=== PATIENT | female | born 1950 | race Caucasian/White ===

== ENCOUNTER 2016-03-15 13:32 | Emergency (ER) | payer MEDICARE ==
[2016-03-15] MEDS ORDERED: ONDANSETRON 4 MG ODT TAB ONE (14:22)
[2016-03-15] MEDS ORDERED: MORPHINE SULFATE 2 MG/ML SYRINGE ONE (14:22)
[2016-03-15] MEDS ORDERED: MORPHINE SULFATE 4 MG/ML SYRINGE ONE (14:22)
--- NOTE | 2016-03-15 14:25 | RAD ---
EXAMINATION :TWO VIEW HUMERUS RIGHT HISTORY: Fall injury. Right humerus and shoulder pain. COMPARISONS: None FINDINGS: 2 views of the Right humerus reveals: There is a markedly comminuted impacted fracture of the proximal right humerus. There is medial displacement of the distal fracture fragments. The distal humerus is intact. The adjacent scapula and clavicle are unremarkable. The glenohumeral joint space is grossly maintained. The elbow is grossly unremarkable. IMPRESSION: Markedly comminuted impacted fracture of the proximal right humerus.
== END 2016-03-15 15:10 | disposition home or self-care (01) ==
LOC: ED 13:32
DX: S42.91XA Fracture of right shoulder girdle, part unspecified, initial encounter for closed fracture (principal); G35 Multiple sclerosis; F17.210 Nicotine dependence, cigarettes, uncomplicated; Z85.3 Personal history of malignant neoplasm of breast; Z79.899 Other long term (current) drug therapy; W10.9XXA Fall (on) (from) unspecified stairs and steps, initial encounter
CPT/HCPCS: 73060; 99283; 96372; 99284; J2270 ×2; A9270

== ENCOUNTER 2016-03-29 15:29 | Emergency (ER) | payer MEDICARE ==
--- NOTE | 2016-03-29 18:26 | RAD ---
ADDENDUM #1 Dr. Quinones called and stated on his review, he sees a fracture right where the patient's hurting, within the posterior right 10th rib. Lucency is seen in this location on both the PA view of the chest and image labeled "ribs upper." This is 8 cm from the BB. Findings are compatible with a subacute nondisplaced fracture. This is discussed with Dr. Quinones at 1840 hours 03/29/2016. ADDENDUM #2 Disregard the addendum, it was erroneously placed in this record. ORIGINAL REPORT Exam: 4 view left knee COMPARISON: None INDICATION: Fall on ice on 03/15/2016, persistent left knee pain. FINDINGS: AP, lateral and bilateral AP oblique views of the left knee were obtained. Diffuse bony osteopenia. There is no joint effusion. Alignment is maintained. No fracture or periosteal reaction is identified. Joint spaces are preserved. IMPRESSION: Osteopenia. Otherwise negative 4 view left knee.
== END 2016-03-29 18:56 | disposition home or self-care (01) ==
LOC: ED 15:29
DX: S83.412D Sprain of medial collateral ligament of left knee, subsequent encounter (principal); W19.XXXD Unspecified fall, subsequent encounter

== ENCOUNTER 2016-04-10 10:01 | Inpatient (IN) | payer MEDICARE, OTHER ==
--- NOTE | 2016-04-09 09:08 | HP ---
DATE OF CLINIC: 04/08/2016 NUVIA WEEKS : 1950 PLANNED PROCEDURE: Right Reverse Shoulder Arthroplasty vs. Hemiarthroplasty and Biceps Tendoesis for a 4 part Proximal Humerus Fracture DATE OF SURGERY: April 10, 2016 SURGEON: Anuj Patterson M.D. HISTORY OF PRESENT ILLNESS Nuvia Weeks is a 65 year old female. * Medication list reviewed with patient allergy list reviewed with patient. * Tried NSAIDS * Has not tried Physical Therapy * Has not tried Injections The patient is a 65 yr old female with a PMH significant for multiple sclerosis, stroke, breast cancer s/p double mastectomies and reconstruction, who smokes 1/2 ppd of cigarettes, who sustained a fall 3 weeks ago resulting in a 4 part proximal humerus frx. The patient had an EMG/NCV study yesterday by Dr. Flores who I spoke to on the phone who says that he does have some muscle recruitment with the axillary nerve but there may be some evidence of neuropraxia in the right shoulder. At the last exam, I had some concern about her persistent weakness and different sensation on the lateral aspect of her right shoulder. The patient is here today with her sister to consider her options, both non-op and surgical treatment. She is leaning toward surgery. At the last appointment I told her that I do not think an ORIF would be successful and would recommend a right shoulder arthroplasty, a reverse shoulder replacement or hemiarthroplasty and she is here to discuss the pros and cons of this procedure. The patient rates her right shoulder pain as 6/10 and continues to wear the shoulder immobilizer. PMH: The patient has had a prior surgery in 1991 of the right shoulder. She was seen by my partner, Dr. Valles, recently who then ordered a CT scan to better evaluate her fracture and I was asked to see the patient in follow-up for possible treatment options. She is here today with her sister. The patient lives in [place], [place]. Prior to this fall she did not have any problems with his shoulder. The patient has not seen her PCP recently, her tree sapper or her neurologist. The patient states she is in a fair amount of pain and cannot clearly state to me if her sensation on the right shoulder in the axillary nerve distribution feels the same or different than her left shoulder. CURRENT MEDICATION * Avonex 30 MCG Kit 1 once a day 0 days, 0 refills * Citalopram 30 MG Tablet 0 days, 0 refills * [facility] Melatonin 10 MG Capsule 0 days, 0 refills * OxyCODONE HCl 5 MG Tablet as directed: one tab by mouth every 4-6 hours as needed for pain, 14 days, 0 refills * Oxycodone-Acetaminophen 5-325 MG Tablet 0 days, 0 refills * Percocet 5-325 MG Tablet Take 1-2 tablets by mouth every 4-6 hours as needed for pain, 10 days, 0 refills PAST MEDICAL/SURGICAL HISTORY Reported: Medical: Multiple sclerosis, cancer breast, Thyroid Disorder, and Anemia. Surgical / Procedural: Prior surgery Left thumb 2006, Caesarean Section x2 1988/1986, Tonsilectomy, and Breast surgery Double mastectomy & reconstruction 2014?. Allergy to colds as child MS C.S times two exploratory lap CTS bilateral pin left wrist after fracture. SOCIAL HISTORY Behavioral: Caffeine use. No tobacco use. Current smoker. Not chewing tobacco. Smoking status: Current everyday smoker. Alcohol: Alcohol use. Drug Use: Not using drugs. Work: Occupation Teacher. ALLERGIES * Bees FAMILY HISTORY Mother ill Cancer, Thyroid disease Children living yes Mother allergic to tape Family medical history Mother- Depression Father- Cancer REVIEW OF SYSTEMS Systemic: No fever and no recent weight change. Cardiovascular: No chest pain or discomfort and no palpitations. Pulmonary: No dyspnea, no cough, and no wheezing. Gastrointestinal: No nausea, no vomiting, no abdominal pain, and no diarrhea. Hematologic: No easy bleeding and no tendency for easy bleeding (no blood clots). Neurological: Motor disturbances (pt describes some balance issues) and sensory disturbances (decreased right arm sensation by axillary nerve, symptoms of MS). Skin: No skin lesions and no rash. PHYSICAL FINDINGS * Vitals taken 04/08/2016 02:56 pm BP-Sitting R 74/40 mmHg 100 - 120/56 - 80 BP Cuff Size Regular Pulse Rate-Sitting 65 bpm 50 - 100 Pulse Rhythm Regular Temp-Oral 98.1 F 96 - 101 Height 66 in 59 - 68 Weight 150 lbs 96 - 178 Body Mass Index 24.2 kg/m2 Body Surface Area 1.77 m2 Pain Level 7 General Appearance: * Well developed. * In no acute distress. Eyes: General/bilateral: Extraocular Movements: * Normal. Lungs: * Clear to auscultation. * No wheezing was heard. * No rales/crackles were heard. Cardiovascular: Heart Rate and Rhythm: * Heart rate was normal. * Heart rhythm regular. Abdomen: Palpation: * Abdominal non-tender. Neurological: * Oriented to time, place, and person. Motor: * Dominant Hand = Right Hand. PHYSICAL FINDINGS RIGHT EXTREMITY Elbow AROM Flexion: 10 to 130 degrees Shoulder General Appearance: The patient has no right shoulder bruising and minimal swelling. She has limited right shoulder motion due to pain AROM Forward Flexion: 40 degrees ABD: 30 degrees PROM Forward Flexion: 40 degrees ABD: 30 degrees ER (0): 0 degrees Strength (0-5/5) Deltoid: 3/5 Triceps: 4/5 Biceps: 4/5 EPL,Finger Flexors,Finger Extensors,Wrist Flexors, Wrist Extensors,Intrinsics,Automobile Rental Clerk: 5/5 Rotator cuff Supraspinatus: could not assess Infraspinatus: could not assess Subscapularis: could not assess Biceps Exam Bicipital Groove Tenderness: Tender to touch Muscle Deformity (Renan): Not present Other Atrophy/Asymmetry: Normal Scapular Winging: Negative Medial Scapular Tenderness: Negative Trapezius Pain: POSITIVE Vascular Exam Radial Pulse: 2+ Sensation Gross sensation to light touch in the distribution of Median, Ulnar and Radial nerves present but patient has decreased axillary nerve sensation on the right compared to the left PHYSICAL FINDINGS LEFT EXTREMITY Shoulder General Appearance: no scars, no bruising, no swelling, no gross deformity AROM Forward Flexion: 160 degrees ABD: 110 degrees IR: Highest posterior anatomy reached with thumb: L3 PROM ER (0): 50 degrees Strength (0-5/5) Deltoid: 5/5 Triceps: 5/5 Biceps: 5/5 EPL,Finger Flexors,Finger Extensors,Wrist Flexors, Wrist Extensors,Intrinsics,Automobile Rental Clerk: 5/5 Rotator cuff Supraspinatus: 5/5 (negative empty can test) Infraspinatus: 5/5 (no pain with resisted external rotation) Subscapularis: 5/5 (negative belly press test) Rotator Cuff Exam Superior Escape: Negative Biceps Exam Bicipital Groove Tenderness: Negative Muscle Deformity (Renan): Not present Other Atrophy/Asymmetry: Normal Medial Scapular Tenderness: Negative Trapezius Pain: Negative Vascular Exam Radial Pulse: 2+ Sensation Gross sensation to light touch in the distribution of Median, Ulnar, Axillary, and Radial nerves present PREVIOUS TESTS * Test: CBC NO DIFF Report Date: 04/01/2016 WBC 7.8 10*3/mL MCV 100.5 fL High RBC 4.07 10*6/uL Low MCH 33.4 pg High MCHC 33.3 g/dL RDW 13.2 % PLATELET COUNT 446 10*3/mL High HCT 40.9 % HGB 13.6 g/L * Test: URINALYSIS WITH MICROSCOPIC Report Date: 04/01/2016 EPITHELIAL CELL 1-3 WBC 20-30 GLUCOSE NEGATIVE BACTERIA 2+ PH,URINE 6.0 SPEC. GRAVITY 1.025 KETONE NEGATIVE NITRITE NEGATIVE RBC 0-2 BLOOD NEGATIVE BILIRUBIN NEGATIVE APPEARANCE CLEAR PROTEIN TRACE COLOR YELLOW LEUK ESTERASE 2+ UROBILINOGEN NORMAL * Test: PROTHROMBIN TIME Report Date: 04/01/2016 PROTIME 9.9 s INR 0.94 * Test: PARTIAL THROMBOPLASTIN TIME Report Date: 04/01/2016 APTT 22.1 s Low * Test: BASIC METABOLIC PROFILE Report Date: 04/01/2016 BUN 20 mg/dL BUN/CREAT RATIO 33 High CALCIUM 9.4 mg/dL GLUCOSE 92 mg/dL CREATININE 0.6 mg/dL SODIUM 140 meq/L POTASSIUM 4.2 meq/L CHLORIDE 103 meq/L CARBON DIOXIDE 30 meq/L ANION GAP 11 meq/L GFR 101 High * Test: URINE CULTURE Report Date: 04/02/2016 URINE CULTURE >100,000 CFU/ML MIXED KAYLEN, 3 OR MORE COLONY TYPES, * Test: MRSA SCREEN Report Date: 04/02/2016 MRSA SCREEN NEGATIVE * Test: MSSA SCREEN Report Date: 04/02/2016 MSSA SCREEN NEGATIVE FOR STAPHYLOCOCCUS AUREUS IMAGING 04.01.2016--CXR: shows degenerative scoliosis of the thoracic spine. The patient has signs of obstructive pulmonary findings but no acute infiltrates or other problems are appreciated. 03.29.2016--Knee x-rays show no signs of arthritis or signs of a fracture in the left knee. Flexion views were not performed. Osteopenia is seen on the x-rays. 03.15.2016--AP and lateral of the right humerus show a comminuted right proximal humerus frx. This appears to be a displaced 4 part fracture. 03.19.2016--4 views of the right shoulder---shows a 4 part comminuted, proximal humerus fracture. The articular surface is facing the undersurface of the acromion. 03.19.2016--CT of the right shoulder--pt has a normal appearing glenoid with a 4 part proximal humerus fracture. The patient's tuberosities are displaced. There is hemearthrosis that is present ASSESSMENT Anuj Patterson MD made the following assessments * Closed four-part fracture of the greater tuberosity of the right humerus --2 weeks ago * Sprained medial collateral ligament of the left knee PLAN Anuj Patterson MD ordered the following therapy * Shoulder arthroplasty -right RSA vs. hemiarthroplasty THERAPY * Patient not eligible for fall risk assessment. SURGICAL CONSENT We have discussed surgical options including right shoulder reverse shoulder arthroplasty vs. hemiarthroplasty and biceps tenodesis for a 4 part proximal humerus fracture vs nonoperative management. I spoke to the patient about her injury. I told her that based on her fracture pattern I do not think an ORIF would be successful and would recommend an arthroplasty I told her we would evaluate at the time of surgery whether I would perform a RSA or William depending on the status of her rotator cuff. Based on what I see on the CT scan I told her a RSA is more likely. I told her today about the limitation of an RSA especially that she is at higher risk of instability due to her axillary nerve decreased function. I spoke to Dr. Flores and he expects this to recover so I think it is worthwhile moving ahead with this surgery. We then spoke about some of the technical aspects of the surgery. I showed her my patient education powerpoint presentation about the procedure and attempted to answer her questions. We spoke about her increased risk of infection, stroke, instability, infection, limited longevity of an RSA, and anesthesia risks. After a lengthy description, the patient signed the consent form. The patient has shoulder pain, decreased ROM and strength, not responding to injections, therapy, and non-operative measures. The patient had a x-ray and MRI documenting her rotator cuff problem. Because of those findings and failure of conservative non-operative treatment, after a lengthy discussion of the risks and benefits she/he elected to proceed with the above mentioned surgery. The patient understood that the risks of infection, blood loss, neurovascular injury, anesthetic risk, risk of instability, stiffness and post-operative pain. I explained that a reverse shoulder replacement refers to the resurfacing of the glenoid (part of the scapula) placing a metal ball or glenosphere with screws on this side of the joint, and cementing a metal stem used to fix it on the inside of the arm bone (humerus) with a plastic socket fixed in the humeral shaft. This procedure is the standard approach tot he management of arthritis of the shoulder joint in a patient's shoulder without a functional rotator cuff tendon. Because it resurfaces both the ball and the socket sides of the joint, it provides the most assured approach to restoring comfort and function to the shoulder. We can perform this shoulder surgery by operating through the delto-pectoral interval through an incision in the anterior aspect of the shoulder. Commonly, we performed a tenodesis of the long head of the biceps and a release (and repair) of the subscapularis tendon from the humerus. The long head of the biceps is sutured to the pectoral major tendon, and the subscapularis tendon is repaired back to the bone at the conclusion of the surgery. After a release of the subscapularis, the capsule, which is usually tight and contracted, limiting motion of the shoulder, is released. The arthritic part of the ball is removed with care to preserve the rotator cuff. The bone spurs are removed from around the humerus to avoid unwanted contact with the scapula. We then shape the bone of the socket area (glenoid) to receive the glenosphere ball. This is fixed in place with screws while the humeral socket is held in place with a small amount of bone cement (polymethylmethacrylate). This goes inside the humeral bone. The subscapularis is then repaired to the humerus using sutures. The [id number] of the shoulder is then evaluated and stability is then examined. The incision is then washed and closed. Pendulum exercises will be taught to the patient the day after surgery. Patients are usually discharged from the hospital on the second day after surgery, as long as they are comfortable on oral pain medication have met our goals for their [id number], and are able to walk with good balance and can care for their daily needs. In the past, there has been a major concern about wear of the glenoid socket component or about its loosening. While these concerns remain to a degree, it appears that our current methods of socket preparation and current prosthesis designs have substantially reduced these risks. Shoulder replacement surgery usually results in a substantial improvement in the comfort and function of an arthritic shoulder, but the results cannot be expected to match the condition of a normal joint. The patient was counseled in detail regarding the diagnosis, treatment options available, prognosis of each treatment option and the potential risks and complications. The risks of surgery include, but are not limited to, anesthetic , neurovascular complications, pulmonary embolism, deep vein thrombosis, wound dehiscence, failure of any or all of the discussed procedures, infection of the joint or surrounding soft tissue, need for revision surgery, chronic pain, limitations in activities of daily living, inability to return to work, and loss of normal range of motion or functional use of the extremity. There is the possibility of failure over time that may require additional operative or non-operative treatment. The patient acknowledged that there are a number of perioperative risks not mentioned here and would still like to proceed. The patient is aware of and understands these risks, and wishes to proceed with the proposed surgical procedure and other procedures as indicated at the time of surgery. The patient has seen her PCP for a preoperative medical risk assessment. The preoperative instructions were reviewed with the patient and all questions were answered. CARE TEAM Abelardo Levy MD Psychiatry & Neurology - Neurology BLP/sg
[2016-04-10] MEDS ORDERED: CEFAZOLIN SODIUM 2 GRAM PREMIX 100 ML IV PRN (12:00)
[2016-04-10] MEDS ORDERED: IV START KIT ONE (12:29)
[2016-04-10] MEDS ORDERED: LACTATED RINGERS 1,000 ML ONE ×2 (12:29→16:13)
[2016-04-10] MEDS ORDERED: FENTANYL 5 ML ONE (12:42)
[2016-04-10] MEDS ORDERED: MIDAZOLAM HCL 5 MG/5 ML VIAL ONE (12:42)
[2016-04-10] MEDS ORDERED: ROPIVACAINE 0.5% 30 ML VIAL ONE (12:46)
[2016-04-10] MEDS ORDERED: SODIUM CHLORIDE 0.9% FLUSH 10 ML ONE (12:46)
[2016-04-10] MEDS ORDERED: NERVE BLOCK PROCEDURAL TRAY 1 EACH ONE (12:46)
[2016-04-10] MEDS ORDERED: NICOTINE 14 MG PATCH 1 EACH TD SCH (14:10)
[2016-04-10] MEDS ORDERED: METOCLOPRAMIDE HCL 5 MG/ML 2ML VIAL ONE (14:13)
[2016-04-10] MEDS ORDERED: PROPOFOL 60 ML IV ONE (14:13)
[2016-04-10] MEDS ORDERED: ROCURONIUM BROMIDE 10 MG/ML DOSE IV ONE (14:13)
[2016-04-10] MEDS ORDERED: DEXAMETHASONE SOD PHOS 4 MG/1 ML VIAL ONE (14:13)
[2016-04-10] MEDS ORDERED: LIDOCAINE 2% (PRES FREE) 5 ML VIAL ONE ×2 (14:13→16:15)
[2016-04-10] MEDS ORDERED: CEFAZOLIN SODIUM 2 GRAM PREMIX 100 ML IV ONE (15:28)
[2016-04-10] MEDS ORDERED: MIDAZOLAM HCL 1 MG/ML 2ML VIAL ONE (15:47)
[2016-04-10] MEDS: MIDAZOLAM HCL 5 MG/5 ML VIAL IV SCH ×2 (16:00→22:00)
[2016-04-10] MEDS ORDERED: EPINEPHRINE 1 MG/ML 1ML AMP ONE (16:02)
[2016-04-10] MEDS ORDERED: METHYLENE BLUE 1% 1ML VIAL ONE (16:02)
[2016-04-10] MEDS ORDERED: KETAMINE HCL UD SYRINGE 100 MG/2 ML IV ONE ×2 (16:43)
[2016-04-10] MEDS ORDERED: ON-Q PUMP/ROPIVACAINE 0.2% 450 ML ONE (16:43)
[2016-04-10] MEDS ORDERED: FENTANYL 100 MCG/2 ML VIAL IV PRN (17:35)
[2016-04-10] MEDS ORDERED: PROMETHAZINE HCL 25 MG/ML VIAL IM PRN (17:35)
[2016-04-10] MEDS ORDERED: NALOXONE HCL 0.4 MG/ML VIAL IV PRN (17:35)
[2016-04-10] MEDS ORDERED: HYDROMORPHONE HCL 1 MG/ML SYRINGE IV PRN (17:35)
[2016-04-10] MEDS ORDERED: ONDANSETRON 4 MG/2ML 2 ML VIAL IV PRN ×3 (17:35→22:45)
[2016-04-10] MEDS ORDERED: ATROPINE SULFATE 0.4 MG/1 ML VIAL IV PRN (17:35)
[2016-04-10] MEDS ORDERED: LACTATED RINGERS 1,000 ML IV SCH (17:45)
--- NOTE | 2016-04-10 20:12 | PCMBPN ---
Brief Post Op Note: Date of Procedure: 04/10/16 Preoperative Diagnosis: 1. right 4 part proximal humerus fracture Postoperative Diagnosis: 1. [Same] Procedure: Right reverse shoulder arthroplasty and biceps tenodesis for 4 part proximal humerus frx Surgeon: Anuj Patterson MD Assist: Rosa SHIPMAN Anesthesia: GETA, right intrascalene nerve block and catheter for post-op pain control Findings: pt had an articular surface without any signs of soft tissue attachment. THe patient had a displaced greater tuberosity frx and lesser tuberosity frx. DJO Ultivate stem. Cemented size 6 humerus with a size 10mm cement restrictor. Neutral socket and liner. 32-4 glenosphere and baseplate with screws 18mm x2 and 30mm x2 Condition: extubated, stable vitals, transferred to pacu Complications: None IV Fluids: 2400 mLs of LR Urine Output: 250 mLs Estimated Blood Loss: 250 mLs Tourniquet Time: [N/A] Specimens: [N/A] Implants: DJO ultivate Drains: [N/A] Plan: NWB on the RUE. Shoulder immobilizer at all times. ANcef x 24 hours post- op and Oxycodone for pain control.
--- NOTE | 2016-04-10 20:18 | RAD ---
SHOULDER-RIGHT 1 VIEW HISTORY: Right shoulder arthroplasty intraoperative fluoroscopy. COMPARISONS: Plain films 03/19/2016 FINDINGS: 2 overhead fluoroscopic images are provided for review. These images demonstrate placement of a reversed delta prosthesis. Study is limited with respect to osseous detail given fluoroscopic technique. Fluoroscopy time: 21.1 seconds IMPRESSION: Intraoperative fluoroscopy as above. Please see orthopedist note regarding the procedure for further details.
[2016-04-10] MEDS ORDERED: FENTANYL 100 MCG/2 ML VIAL ONE (20:21)
[2016-04-10] MEDS: ON-Q PUMP/ROPIVACAINE 0.2% 450 ML in PREMIX BAG 1 EACH NB PRN (21:00)
--- NOTE | 2016-04-10 21:03 | RAD ---
Clinical Indication: Postop right total shoulder arthroplasty. Comparison: Films dating back to 03/19/2016. Findings: 2 views of the right shoulder. Bones: No fracture or dislocation. Hardware is intact without signs of failure or loosening. Overlying bandaging does limit assessment. Joints: Unremarkable. Soft tissue: Normal. Limited evaluation of the right hemithorax: Unremarkable. Impression: Satisfactory postoperative exam..
[2016-04-10] MEDS ORDERED: MAGNESIUM HYDROXIDE 30 ML UDCUP PO PRN (21:48)
[2016-04-10] MEDS ORDERED: ACETAMINOPHEN 500 MG TABLET PO PRN (21:48)
[2016-04-10] MEDS ORDERED: BISACODYL 10 MG SUP PR PRN (21:48)
[2016-04-10] MEDS ORDERED: DOCUSATE SODIUM 100 MG CAPSULE PO PRN (21:48)
[2016-04-10] MEDS ORDERED: DIPHENHYDRAMINE HCL 50 MG/1 ML VIAL IV PRN ×2 (21:48→22:44)
[2016-04-10] MEDS ORDERED: PUMP TUBING ONE (22:34)
[2016-04-10] MEDS: LACTATED RINGERS 1,000 ML IV SCH (22:41)
[2016-04-10] MEDS: MELATONIN 3 MG TABLET PO SCH (23:40)
[2016-04-10 23:46] VITALS: BMI 23.9
[2016-04-10] MEDS: CEFAZOLIN SODIUM 1 GRAM PREMIX 50 ML IV SCH (23:47)
[2016-04-10] MEDS: DOCUSATE SODIUM 100 MG CAPSULE PO SCH (23:49)
[2016-04-11] MEDS: MIDAZOLAM HCL 5 MG/5 ML VIAL IV SCH ×17 (00:15→09:19)
[2016-04-11] MEDS: CEFAZOLIN SODIUM 1 GRAM PREMIX 50 ML IV SCH (00:35)
[2016-04-11] MEDS: MORPHINE SULFATE 2 MG/ML SYRINGE IV PRN ×3 (04:16→08:29)
[2016-04-11] MEDS: IBUPROFEN 600 MG TABLET PO PRN ×2 (04:16→20:21)
[2016-04-11] MEDS ORDERED: BLISTEX LIPSTICK 1 EACH TP ONE (04:21)
[2016-04-11] MEDS: BLISTEX LIPSTICK 1 EACH TP PRN ×2 (04:21→11:22)
[2016-04-11 06:17] LABS: CALCIUM 8.5 mg/dL (8.6-10.3)
[2016-04-11] MEDS: OXYCODONE HCL 5 MG TABLET PO PRN ×4 (06:23→20:20)
[2016-04-11 06:57] LABS: HEMATOCRIT 34.8 % (37.0-47.0); HEMOGLOBIN 11.5 gm/l (12.0-16.0); MEAN CELL VOLUME 99.7 fl (81.0-99.0); RED CELL DISTRIBUTION WIDTH 12.8 % (11.5-14.5)
[2016-04-11] MEDS ORDERED: CEFAZOLIN SODIUM 2 GRAM DUPLEX 2 G in Premix (D5W) 50 ml 1 EACH IV SCH (08:00)
[2016-04-11] MEDS: LACTATED RINGERS 1,000 ML IV SCH ×3 (08:27→22:20)
[2016-04-11] MEDS: OXYCODONE HCL 10 MG TAB.SR PO SCH ×2 (08:31→20:20)
[2016-04-11] MEDS ORDERED: MODAFINIL 200 MG PO SCH (09:00)
[2016-04-11] MEDS ORDERED: VIT C NO 4 PO SCH (09:00)
[2016-04-11] MEDS ORDERED: CYANOCOBALAMIN (VITAMIN B-12) 250 MCG TABLET PO SCH (09:00)
[2016-04-11] MEDS ORDERED: VITAMIN B PO SCH (09:00)
[2016-04-11] MEDS ORDERED: VITAMIN B COMPLEX W/B-12 1 EACH TABLET PO SCH (09:00)
[2016-04-11] MEDS ORDERED: VITAMIN B COMPLEX PO SCH (09:00)
[2016-04-11] MEDS: ASPIRIN (ENTERIC COATED) 325 MG TABLET.EC PO SCH (09:42)
[2016-04-11] MEDS: DOCUSATE SODIUM 100 MG CAPSULE PO SCH ×2 (09:42→20:20)
[2016-04-11] MEDS: VITAMIN D3 1,000 UNITS CAP.LIQ PO SCH (09:44)
[2016-04-11] MEDS: MULTIVIT W/ MINERALS 1 TAB TABLET PO SCH (09:44)
[2016-04-11] MEDS: ON-Q PUMP/ROPIVACAINE 0.2% 450 ML in PREMIX BAG 1 EACH NB PRN (09:50)
--- NOTE | 2016-04-11 10:20 | PDOC43 ---
- Subjective Subjective: Denies Pain Tolerable (Pt has a lot of pain. Nerve block not working well. No fevers. Pt is concerned about her ability to go home), Denies Chest Pain, Denies Shortness of Breath, Denies Nausea, Denies Vomiting - Objective Vital Signs Temperature 98.4 F 04/11/16 08:00 Pulse Rate 85 04/11/16 08:00 Respiratory Rate 18 04/11/16 08:00 Blood Pressure 141/53 04/11/16 08:00 O2 Saturation by Pulse Oximetry 95 04/11/16 08:00 Oxygen Delivery Method Room Air Oxygen Flow Rate 0 Laboratory 04/11/16 05:30 04/11/16 05:30 04/11/16 05:30 RBC 3.49 L MCV 99.7 H MCH 33.0 H Estimated GFR 125 H Calcium 8.5 L Active Medication Orders Category Date Time Status Acetaminophen [Tylenol] Med 04/10/16 22:44 Active 500 mg PO Q6H PRN Aspirin (Enteric Coated) [Ecotrin] Med 04/11/16 09:00 Active 325 mg PO DAILY Bisacodyl [Dulcolax] Med 04/10/16 21:48 Active 10 mg CA DAILY PRN Citalopram Hydrobromide [Celexa] Med 04/11/16 20:00 Active 40 mg PO QPM Cyanocobalamin [Vitamin B-12] Med 04/11/16 09:00 Active 2,500 mcg PO DAILY Diphenhydramine HCl [Benadryl] Med 04/10/16 22:44 Active 25 mg IV Q6H PRN Docusate Sodium [Colace] Med 04/10/16 21:48 Active 100 mg PO BID Docusate Sodium [Colace] Med 04/10/16 21:48 Active 100 mg PO BID PRN Ibuprofen [Motrin] Med 04/10/16 21:48 Active 600 mg PO Q8H PRN Interferon Beta-1A/Albumin [Avonex 30 Mcg Vial Kit] Med 04/17/16 09:00 Pending 30 mcg IM Q7D Lactated Ringers 1,000 ml Med 04/10/16 21:48 Active IV 125 mls/hr Lip [place] [Blistex] Med 04/11/16 04:21 Active 1 each TP PRN PRN Magnesium Hydroxide [Milk of Magnesia] Med 04/10/16 21:48 Active 30 ml PO DAILY PRN Melatonin Med 04/10/16 23:00 Active 9 mg PO BEDTIME Modafinil [Provigil] Med 04/11/16 09:00 Active 200 mg PO DAILY Morphine Sulfate Med 04/10/16 21:48 Active 2 - 4 mg IV Q4H PRN Multivitamin W/ Minerals [Theragran-M] Med 04/11/16 09:00 Active 1 tab PO DAILY On-Q Pump/Ropivacaine 0.2% 450 ml Med 04/10/16 17:35 Active Premix Bag [Premix Fluid] 1 each NB Q50H Ondansetron 4 mg/2ml Vial [Zofran] Med 04/10/16 22:45 Active 4 mg IV Q6H PRN Oxycodone HCl [Roxicodone] Med 04/10/16 21:48 Active 5 - 10 mg PO Q4H PRN Oxycodone Sr [Oxycontin] Med 04/11/16 09:00 Active 10 mg PO Q12HR Sodium Chloride 0.9% Flush [Normal Saline 10ml Flush] Med 04/10/16 21:48 Active 10 - 50 ml IV PRN PRN Vitamin B 3 Med 04/11/16 09:00 Pending 2,000 units PO DAILY Vitamin B Complex & Vit C No.4 [Super B Complex] Med 04/11/16 09:00 Pending 150 mg PO DAILY Vitamin B Complex W/B-12 Med 04/11/16 09:00 Active 1 each PO DAILY Vitamin D3 Med 04/11/16 09:00 Active 2,000 units PO DAILY Intake and Output 04/09/16 04/10/16 04/11/16 23:59 23:59 23:59 Intake Total 3000 1091 Output Total 600 700 Balance 2400 391 General: Afebrile - Right Upper Extremity Incision: Dressing Clean/Dry/Intact Motor: Extensor Pollicis Longus: 4/5, Finger Flexors: 4/5, Finger Extensors: 4/5 , Wrist Flexors: 4/5, Wrist Extensors: 4/5, Intrinsics: 4/5 Gross Sensation to Light Touch: Present: Median Nerve, Ulnar Nerve, Radial Nerve Capillary Refill: < 3 Seconds (Passive motion of her right elbow) - Problems (1) Fracture of proximal humerus Status: Acute (2) Status post reverse arthroplasty of right shoulder Status: Acute - Disposition POD#1 s/p right reverse shoulder arthroplasty for a 4 part proximal humerus frx Patient's pain control is an issue. Will start oxycontin and continue with oxycodone and IV dialudid ASA for DVT prophylaxis Ancef x 24 hours Pt will discharged home when she as good pain control PT and OT to work with the patient today and we will remove the llamas catheter
[2016-04-11] MEDS: HYDROMORPHONE HCL 2 MG/ML SYRINGE IV PRN ×2 (11:12→14:04)
[2016-04-11] MEDS: [UNRECOGNIZED DRUG - OTHER] PO SCH (12:20)
[2016-04-11] MEDS ORDERED: CALCIUM CARBONATE 500 MG TAB.CHEW PO PRN (12:26)
[2016-04-11] MEDS: CALCIUM CARBONATE 500 MG TAB.CHEW PO PRN ×2 (16:37→22:14)
[2016-04-11] MEDS: CITALOPRAM HYDROBROMIDE 20 MG TABLET PO SCH (20:20)
[2016-04-12] MEDS: OXYCODONE HCL 5 MG TABLET PO PRN ×7 (00:18→22:46)
[2016-04-12] MEDS: MELATONIN 3 MG TABLET PO SCH ×2 (00:41→21:02)
--- NOTE | 2016-04-12 07:25 | PDOC43 ---
- Subjective Subjective: Denies Pain Tolerable (PT still painful but doing better last night. ), Denies Shortness of Breath, Denies Nausea, Denies Vomiting, Denies Fever - Objective Vital Signs Temperature 98.4 F 04/12/16 07:13 Pulse Rate 81 04/12/16 07:13 Respiratory Rate 18 04/12/16 07:13 Blood Pressure 155/55 04/12/16 07:13 O2 Saturation by Pulse Oximetry 94 04/12/16 07:13 Oxygen Delivery Method Room Air Oxygen Flow Rate 0 Active Medication Orders Category Date Time Status Acetaminophen [Tylenol] Med 04/10/16 22:44 Active 500 mg PO Q6H PRN Aspirin (Enteric Coated) [Ecotrin] Med 04/11/16 09:00 Active 325 mg PO DAILY Bisacodyl [Dulcolax] Med 04/10/16 21:48 Active 10 mg [place] DAILY PRN Calcium Carbonate [Tums] Med 04/11/16 16:34 Active 500 mg PO Q4H PRN Citalopram Hydrobromide [Celexa] Med 04/11/16 20:00 Active 40 mg PO QPM Cyanocobalamin [Vitamin B-12] Med 04/11/16 09:00 Hold 2,500 mcg PO DAILY Diphenhydramine HCl [Benadryl] Med 04/10/16 22:44 Active 25 mg IV Q6H PRN Docusate Sodium [Colace] Med 04/10/16 21:48 Active 100 mg PO BID Docusate Sodium [Colace] Med 04/10/16 21:48 Active 100 mg PO BID PRN Hydromorphone HCl [Dilaudid] Med 04/11/16 10:57 Active 2 mg IV Q3-4H PRN Ibuprofen [Motrin] Med 04/10/16 21:48 Active 600 mg PO Q8H PRN Interferon Beta-1A/Albumin [Avonex 30 Mcg Vial Kit] Med 04/17/16 09:00 Active 30 mcg IM Q7D Lip Lead [Blistex] Med 04/11/16 04:21 Active 1 each TP PRN PRN Magnesium Hydroxide [Milk of Magnesia] Med 04/10/16 21:48 Active 30 ml PO DAILY PRN Melatonin Med 04/10/16 23:00 Active 9 mg PO BEDTIME Multivitamin W/ Minerals [Theragran-M] Med 04/11/16 09:00 Active 1 tab PO DAILY On-Q Pump/Ropivacaine 0.2% 450 ml Med 04/10/16 17:35 Active Premix Bag [Premix Fluid] 1 each NB Q50H Ondansetron 4 mg/2ml Vial [Zofran] Med 04/10/16 22:45 Active 4 mg IV Q6H PRN Oxycodone HCl [Roxicodone] Med 04/10/16 21:48 Active 5 - 10 mg PO Q4H PRN Oxycodone Sr [Oxycontin] Med 04/11/16 09:00 Active 10 mg PO Q12HR Patient's Own Medication [Patient's Own Medication ( Med 04/11/16 12:00 Active Narcotic-One)] 200 each PO DAILY Sodium Chloride 0.9% Flush [Normal Saline 10ml Flush] Med 04/10/16 21:48 Active 10 - 50 ml IV PRN PRN Vitamin B 3 Med 04/11/16 09:00 Hold 2,000 units PO DAILY Vitamin B Complex & Vit C No.4 [Super B Complex] Med 04/11/16 09:00 Hold 150 mg PO DAILY Vitamin B Complex W/B-12 Med 04/11/16 09:00 Hold 1 each PO DAILY Vitamin D3 Med 04/11/16 09:00 Active 2,000 units PO DAILY Intake and Output 04/10/16 04/11/16 04/12/16 23:59 23:59 23:59 Intake Total 3000 3286 1095 Output Total 600 1800 2100 Balance 2400 1486 -1005 General: Afebrile - Right Upper Extremity Incision: Dressing Clean/Dry/Intact Motor: Extensor Pollicis Longus: 5/5, Finger Flexors: 5/5, Finger Extensors: 5/5 , Wrist Flexors: 5/5, Wrist Extensors: 5/5, Intrinsics: 5/5 Gross Sensation to Light Touch: Present: Median Nerve, Ulnar Nerve, Radial Nerve , Axillary Nerve Capillary Refill: < 3 Seconds (Patient's dressing was not changed. Nerve block lowered to 8 today.) - Problems (1) Fracture of proximal humerus Status: Acute (2) Status post reverse arthroplasty of right shoulder Status: Acute - Disposition POD#2 s/p right reverse shoulder arthroplasty for a 4 part proximal humerus frx Patient's pain control is an issue. Pt is doing better on oxycontin and continue with oxycodone for breakthrough and IV dialudid ASA for DVT prophylaxis Ancef x 24 hours has been completed Pt will discharged home when she as good pain control PT and OT to work with the patient today Will check labs later
[2016-04-12] MEDS: DOCUSATE SODIUM 100 MG CAPSULE PO SCH ×2 (08:35→21:00)
[2016-04-12] MEDS: VITAMIN D3 1,000 UNITS CAP.LIQ PO SCH (08:35)
[2016-04-12] MEDS: MULTIVIT W/ MINERALS 1 TAB TABLET PO SCH (08:35)
[2016-04-12] MEDS: OXYCODONE HCL 10 MG TAB.SR PO SCH ×2 (08:36→21:00)
[2016-04-12] MEDS: ASPIRIN (ENTERIC COATED) 325 MG TABLET.EC PO SCH (08:36)
[2016-04-12] MEDS: [UNRECOGNIZED DRUG - OTHER] PO SCH (08:37)
[2016-04-12 13:09] LABS: SPECIFIC GRAVITY 1.015 (1.001-1.030); URINE BILIRUBIN NEGATIVE (NEGATIVE); URINE BLOOD TRACE (NEGATIVE); URINE GLUCOSE (UA) NEGATIVE (NEGATIVE); URINE LEUKOCYTE ESTERASE NEGATIVE (NEGATIVE); URINE NITRITE NEGATIVE (NEGATIVE); URINE PROTEIN NEGATIVE (NEGATIVE); URINE UROBILINOGEN NORMAL (0-1 mg/dl)
[2016-04-12 13:11] LABS: URINE APPEARANCE CLEAR; URINE COLOR YELLOW
[2016-04-12 13:29] LABS: URINE BACTERIA FEW; URINE EPITHELIAL CELLS 0-1 /hpf
[2016-04-12] MEDS: ACETAMINOPHEN 500 MG TABLET PO PRN ×2 (13:40→18:25)
[2016-04-12] MEDS: NICOTINE 7 MG PATCH 1 EACH TD SCH (13:40)
[2016-04-12] MEDS: IBUPROFEN 600 MG TABLET PO PRN ×2 (13:40→22:46)
[2016-04-12] MEDS: CALCIUM CARBONATE 500 MG TAB.CHEW PO PRN ×3 (15:13→22:45)
[2016-04-12] MEDS: CITALOPRAM HYDROBROMIDE 20 MG TABLET PO SCH (21:00)
[2016-04-13] MEDS: OXYCODONE HCL 5 MG TABLET PO PRN ×5 (01:55→21:49)
[2016-04-13] MEDS: ACETAMINOPHEN 500 MG TABLET PO PRN ×2 (01:55→21:49)
[2016-04-13] MEDS: MULTIVIT W/ MINERALS 1 TAB TABLET PO SCH (09:30)
[2016-04-13] MEDS: VITAMIN D3 1,000 UNITS CAP.LIQ PO SCH (09:30)
[2016-04-13] MEDS: ASPIRIN (ENTERIC COATED) 325 MG TABLET.EC PO SCH (09:30)
[2016-04-13] MEDS: DOCUSATE SODIUM 100 MG CAPSULE PO SCH ×3 (09:31→21:53)
[2016-04-13] MEDS: OXYCODONE HCL 10 MG TAB.SR PO SCH ×2 (09:31→20:36)
[2016-04-13] MEDS: IBUPROFEN 600 MG TABLET PO PRN ×2 (10:33→20:36)
[2016-04-13] MEDS: NICOTINE 7 MG PATCH 1 EACH TD SCH (13:27)
[2016-04-13] MEDS: CALCIUM CARBONATE 500 MG TAB.CHEW PO PRN ×3 (13:28→20:40)
[2016-04-13] MEDS: REMOVE PATCH 1 EACH UNIT TD SCH (13:34)
[2016-04-13] MEDS: MELATONIN 3 MG TABLET PO SCH ×2 (18:19→22:47)
[2016-04-13] MEDS: CITALOPRAM HYDROBROMIDE 20 MG TABLET PO SCH ×2 (18:19→21:55)
[2016-04-14] MEDS: ACETAMINOPHEN 500 MG TABLET PO PRN ×2 (06:00→14:04)
[2016-04-14] MEDS: OXYCODONE HCL 5 MG TABLET PO PRN ×3 (06:00→14:52)
[2016-04-14] MEDS: IBUPROFEN 600 MG TABLET PO PRN ×2 (06:00→14:05)
[2016-04-14] MEDS: CALCIUM CARBONATE 500 MG TAB.CHEW PO PRN ×2 (06:16→14:09)
--- NOTE | 2016-04-14 08:16 | PDOC43 ---
- Subjective Subjective: Reports Pain Tolerable (Pt doing ok with oral pain meds today) - Objective Vital Signs Temperature 98.2 F 04/14/16 07:51 Pulse Rate 69 04/14/16 07:51 Respiratory Rate 16 04/14/16 07:51 Blood Pressure 127/68 04/14/16 07:51 O2 Saturation by Pulse Oximetry 91 04/14/16 07:51 Oxygen Delivery Method Room Air Oxygen Flow Rate 0 Laboratory 04/12/16 05:30 04/12/16 05:30 Active Medication Orders Category Date Time Status Acetaminophen [Tylenol] Med 04/10/16 22:44 Active 500 mg PO Q6H PRN Aspirin (Enteric Coated) [Ecotrin] Med 04/11/16 09:00 Active 325 mg PO DAILY Bisacodyl [Dulcolax] Med 04/10/16 21:48 Active 10 mg [place] DAILY PRN Calcium Carbonate [Tums] Med 04/12/16 16:40 Active 1,000 mg PO Q4H PRN Citalopram Hydrobromide [Celexa] Med 04/11/16 20:00 Active 40 mg PO QPM Cyanocobalamin [Vitamin B-12] Med 04/11/16 09:00 Hold 2,500 mcg PO DAILY Diphenhydramine HCl [Benadryl] Med 04/10/16 22:44 Active 25 mg IV Q6H PRN Docusate Sodium [Colace] Med 04/10/16 21:48 Active 100 mg PO BID Docusate Sodium [Colace] Med 04/10/16 21:48 Active 100 mg PO BID PRN Hydromorphone HCl [Dilaudid] Med 04/11/16 10:57 Active 2 mg IV Q3-4H PRN Ibuprofen [Motrin] Med 04/10/16 21:48 Active 600 mg PO Q8H PRN Interferon Beta-1A/Albumin [Avonex 30 Mcg Vial Kit] Med 04/17/16 09:00 Active 30 mcg IM Q7D Lip [place] [Blistex] Med 04/11/16 04:21 Active 1 each TP PRN PRN Magnesium Hydroxide [Milk of Magnesia] Med 04/10/16 21:48 Active 30 ml PO DAILY PRN Melatonin Med 04/10/16 23:00 Active 9 mg PO BEDTIME Multivitamin W/ Minerals [Theragran-M] Med 04/11/16 09:00 Active 1 tab PO DAILY Nicotine 7 mg Patch [Nicoderm Cq] Med 04/12/16 13:30 Active 1 each TD Q24H Ondansetron 4 mg/2ml Vial [Zofran] Med 04/10/16 22:45 Active 4 mg IV Q6H PRN Oxycodone HCl [Roxicodone] Med 04/10/16 21:48 Active 5 - 10 mg PO Q4H PRN Oxycodone Sr [Oxycontin] Med 04/11/16 09:00 Active 10 mg PO Q12HR Patient's Own Medication [Patient's Own Medication ( Med 04/13/16 09:00 Active Narcotic-One)] 0 each PO DAILY Remove Patch Med 04/13/16 13:30 Active 1 each TD X1 Sodium Chloride 0.9% Flush [Normal Saline 10ml Flush] Med 04/10/16 21:48 Active 10 - 50 ml IV PRN PRN Vitamin B 3 Med 04/11/16 09:00 Hold 2,000 units PO DAILY Vitamin B Complex & Vit C No.4 [Super B Complex] Med 04/11/16 09:00 Hold 150 mg PO DAILY Vitamin B Complex W/B-12 Med 04/11/16 09:00 Hold 1 each PO DAILY Vitamin D3 Med 04/11/16 09:00 Active 2,000 units PO DAILY Intake and Output 04/12/16 04/13/16 04/14/16 23:59 23:59 23:59 Intake Total 1875 1640 1100 Output Total 4025 1350 1325 Balance -2150 290 -225 General: Afebrile - Right Upper Extremity Incision: Dressing Clean/Dry/Intact Motor: Extensor Pollicis Longus: 5/5, Finger Flexors: 5/5, Finger Extensors: 5/5 , Wrist Flexors: 5/5, Wrist Extensors: 5/5, Intrinsics: 5/5 Gross Sensation to Light Touch: Present: Median Nerve, Ulnar Nerve, Radial Nerve , Axillary Nerve Capillary Refill: < 3 Seconds - Problems (1) Fracture of proximal humerus Status: Acute (2) Status post reverse arthroplasty of right shoulder Status: Acute - Disposition POD#3 s/p right reverse shoulder arthroplasty for a 4 part proximal humerus frx Patient's pain control is doing better on oxycontin and continue with oxycodone for breakthrough and IV dialudid ASA for DVT prophylaxis. Pt may be discharged to a skilled facility. Ancef x 24 hours has been completed PT and OT to work with the patient today
[2016-04-14] MEDS: VITAMIN D3 1,000 UNITS CAP.LIQ PO SCH (09:03)
[2016-04-14] MEDS: DOCUSATE SODIUM 100 MG CAPSULE PO SCH (09:03)
[2016-04-14] MEDS: OXYCODONE HCL 10 MG TAB.SR PO SCH (09:03)
[2016-04-14] MEDS: MULTIVIT W/ MINERALS 1 TAB TABLET PO SCH (09:03)
[2016-04-14] MEDS: ASPIRIN (ENTERIC COATED) 325 MG TABLET.EC PO SCH (09:03)
[2016-04-14] MEDS: NICOTINE 7 MG PATCH 1 EACH TD SCH ×2 (10:23→14:05)
[2016-04-14 11:50] VITALS: BP 98/44
--- NOTE | 2016-04-14 12:37 | OP ---
Nuvia SANTACRUZ : 1950 [id number] DATE OF PROCEDURE: April 10, 2016 PREOPERATIVE DIAGNOSIS: Right four-part proximal humerus fracture. POSTOPERATIVE DIAGNOSIS: Right four-part proximal humerus fracture. PROCEDURE: RIGHT REVERSE SHOULDER ARTHROPLASTY AND BICEPS TENODESIS FOR A FOUR PART PROXIMAL HUMERUS FRACTURE. SURGEON: Anuj Patterson M.D. MATERIAL CHECKER: Artem Logan ANESTHESIA: General along with a right interscalene block and catheter for postoperative pain control. FINDINGS: The patient had a comminuted fracture without any soft tissue attachments to the articular surface so, I elected to move forward with arthroplasty. I thought that the patient would have the best result with a reverse shoulder arthroplasty. I used the DJO AltiVate stem. This was cemented size 6 with a 10 mm cement restrictor, a neutral dj instructor and socket was used. The patient had a 32 -4 glenosphere, a base plate with screws measuring 18 mm, 18 mm, 30 mm and 30 mm. CONDITION: The patient was extubated with stable vital signs and transferred to the PACU. COMPLICATIONS: None. INTRAVENOUS FLUIDS: 2400 mL of Lactate Ringer's. URINE OUTPUT: 250 mL ESTIMATED BLOOD LOSS: 250 mL SPECIMENS: N/A TOURNIQUET TIME: N/A IMPLANTS: DJO AltiVate reverse shoulder arthroplasty. DRAINS: N/A PLAN: The patient will be nonweightbearing on the right upper extremity. A shoulder immobilizer at all times for six weeks followed by Ancef and oxycodone for perioperative antibiotics and narcotics. INDICATIONS: The patient is a 65-year-old female who sustained a fall resulting in a right proximal humerus fracture. The patient is a right-hand dominant and originally saw my partner Dr. Valles. The patient's fall was on March 15, 2016 almost one month ago. The patient had on her x-rays signs of displacement and comminution. The patient does have a history of MS which does affect her ability to control her movements, but she states that this is not the reason why she fell. Prior to doing the surgery a CT scan was ordered which documented the status of her comminuted fracture. I saw the patient in consultation and talk to her about her problem and possible treatment options. I told her that I did not think that overall she would be a good candidate for an open reduction internal fixation based on the fracture pattern, the fact that she smokes and thought that a hemiarthroplasty or reverse. I told her that this is a decision that I would make intraoperatively. Prior to the surgery I did examine the patient's right arm. I thought that she might have a neuropraxia and sent her to Dr. Flores, who performed in an EMG/nerve conduction study. He felt that there was some stretch on the nerve consistent with a neuropraxia but he thought that this would be something that would resolve on its own. The patient and I spoke about the risks involved with the surgery such as persistent pain, infection, shoulder stiffness, need for a future surgery, as well as other medical problems which could occur. After discussing this at length with the patient, she decided to proceed. PROCEDURE DESCRIPTION: The patient was seen in the preoperative area where I reviewed with the patient regarding the procedure. They agreed that the right side was the correct side and that this matched the consent form. I placed my initials and the word "yes" on the right arm. After my initials were on the right arm and I updated the H&P, signing it, the patient was seen by the anesthesia team. They reviewed with her the risks and benefits of a nerve block and an intra-scalene nerve catheter was placed under ultrasound guidance. At this point the patient was brought from the preoperative area to the operating suite where the patient was placed on the OR bed and was placed asleep without difficulty. The patient was then intubated without difficulty or complications. The patient was then placed in the beach chair position. The hips were flexed to 45 degrees and the knees were flexed to 45 degrees. Plastic goggles were used to cover the eyes and the head gear was placed securing the head to the bed. The patient was positioned so that a safety belt was secured and the patient had a black knee bump. The patient had bilateral SCDs on each foot for intra-operative DVT prophylaxis. The patient's head was positioned in a neutral position. At this point the bed was turned 45 degrees. The C-arm was brought in and I confirmed that we could obtain a Grashey view. After this was checked, a Betadine scrub, paint and chlorhexidine prep was used to prep the right upper extremity. At this point a final time-out was performed. We confirmed that the patient's correct images were brought up on the view box. This included xrays of the break shoulder and a CT scan demonstrating the version of the glenoid and bony landmarks. In this final time-out we confirmed that the right side was the correct side that our procedure was a right reverse shoulder arthroplasty with a long head of the biceps tendoesis and antibiotics. (Ancef 2 grams) were given for antibiotics. Almost ready to start the surgery, the incision was drawn with a sterile marker. I measured a 10cm line starting just proximal and medial to the coracoid process extending to the mid-shaft of the humerus in the delto-pectoral interval. An Ioban was placed above and below the axilla isolating it from the operative field. A #10 blade was now used to incise the skin. Galvin cautery was used to gain good hemostasis through the subcutaneous fat and 2 Gelpi retractors were placed. An Army-Bone Gap was placed proximally. A Schnidt was used to dissect to identify the cephalic vein. It was brought medially as the deltoid laterally was freed up. A Koenig deltoid retractor was then placed. Anterior bursal tissue was removed exposing the long head of the biceps. It was then tenodesed to the upper border of the pec tendon by its insertion on the humerus with a #2 fiberwire. At this point the rotator interval was opened with Galvin cautery. A small, sharp Argelia was placed into the joint and the anterior capsule was then exposed. A tag suture was then placed in the superior border of the capsule and the remaining portion of the subscapularis. I then used my finger to feel the anterior border of the subscapularis palpating the axillary nerve as well as the axillary artery more medial and inferior. Once this was identified with my traction suture on the upper border of the anterior capsule, this was removed from the lesser tuberosity exposing the humeral head. Knowing where the axillary nerve was located was important. I used tag sutures in both greater and lesser tuberosities which we later used to tie around the implant itself. I then started to prepare the humerus. A large rongeur was used to make a better starting point for the canal finder. A canal finder was then used in the proximal humerus followed by 6 and then 8mm hand canal reamers. Once these were placed a 6mm broach and a 7mm broach was placed into the canal. Next, a small metaphyseal reamer was used to ream out inferior border of the metaphysis. I had an 8mm Reamer in place but because of the amount of bone I did not think that I would be able to PressFit so I made plans to cement the humeral stem. I asked that a 10 mm cement plug be opened, this would be placed later in the humeral canal. Now with the humerus prepared, I turned my attention to the glenoid. I then palpated the axillary nerve one more time anterior to my subscapularis and capsule. I then placed a blunt posterior Waldron retractor posteriorly, a small sharp Hohmann retractor superiorly, and a Cobra anteriorly exposing the glenoid. The anterior labrum was removed and the glenoid was exposed. Once this was performed I used a 2.5mm drill bit to drill my remote pilot operator hole into the glenoid. I then measured this. This measured 30mm. At this point I took the drill out and placed in the tap into the same hole making sure not to lose my path. I then used the base plate reamer followed by the small reamer until I got some good bleeding bone inferiorly. I then placed the 30mm base plate with a center 6.5mm screw and base plate without difficulty getting a good bite. I then placed four 5mm locking screws at 12 o'clock, 3 o'clock, 6 o'clock and 9 o'clock. Once these 5.0mm screws were placed I used the base plate reamer to clean around the base plate itself and then placed the glenosphere. The engaged glenosphere taper was checked and the glenosphere screw was placed with the torque screwdriver. With the glenosphere now implanted, I then returned back to the humerus re-dislocating the humeral head placing the Koenig retractor under the deltoid. The medium metaphyseal reamer was then used. I then placed a standard socket with a 32mm poly and re-reduced the humerus onto the glenosphere. The prosthesis had good tension and good ROM. The implant position was check on C-arm and confirmed the ROM in external rotation, forward flexion and abduction. The humerus was then re-dislocated, I asked for the final implants to be opened and I placed an 10mm cement plug. We then prepared for cementing in the humerus with cement dyed with methylene blue and antibiotics. I assembled the implant together on the back table myself. Once the cement was prepared, I placed a sponge into the canal with epi and placed 3 fiber tape sutures through drill holes in the humerus. These fibertapes would be placed around the implant and then through the subscapularis for our repair at the end. One additional free suture was placed medially in the implant. Once the cement was prepared it was hand packed into the canal itself. The final implant was impacted taking care not to let any extra cement extravasate and then relocated the humerus onto the glenosphere. I then used a free needle to pass my fiber tapes around the humeral stem repairing the subscapularis and capsule back to the anterior aspect of the humerus. This was done with the arm in 30 degrees of external rotation. Once this was performed I took the arm through a [id number]. I checked for good hemostasis and then irrigated the wound once again. The deltopectoral interval was closed with non-absorbable Ethibond sutures to jhonatan the interval for any possible future revision surgeries. This was followed by 0 Vicryl, interrupted 2-0 Vicryl followed by a running Monocryl suture. A DSD was applied. The team confirmed that all needle and sponge counts were correct. The patient was placed in a shoulder immobilizer and awoken without difficulty and transferred to the recovery room. In the recovery room, the patient neurovascularly was grossly intact. The patient was able to fire the EPL, FF, FE, WF, WE and intrinsics 4/5 strength and had gross sensation to light touch in the distribution median, ulnar, radial and axillary nerves prior to placing a right interscalene catheter. The patient will be discharged to the floor. We will give antibiotics for the next 24 hours. For DVT prophylaxis she will be on SCD's and early ambulation. Job [id number] CC: Fito aMncilla
[2016-04-14] MEDS: REMOVE PATCH 1 EACH UNIT TD SCH (14:21)
--- NOTE | 2016-04-15 12:57 | DS ---
Nuvia SANTACRUZ [id number] : 1950 DATE OF ADMISSION: April 10, 2016 DATE OF DISCHARGE: April 14, 2016 SURGEON: Anuj Patterson M.D. HOSPITAL COURSE: The patient is a 65-year-old female with a right four-part proximal humerus fracture treated with a reverse shoulder arthroplasty. The patient had surgery on April 10, 2016. The patient has persistent pain after surgery. We adjusted his pain medication and did an interscalene nerve block. She continued to have pain and discomfort. We advanced her pain medication to doing 15 mg of oxycodone every 3 to 4 hours and use the OxyContin as well. On postoperative day number one the patient's hematocrit was 34. After this the patient refused to get any blood work. The patient's main problem was pain control. This improved with OxyContin along with oral oxycodone. By postoperative day number three, the patient was doing well off intravenous narcotics however the patient had some issues in terms of her home care. She states that because her recently just got home from the hospital this would be difficult for her. After meeting with social work as well as occupational therapy. They felt that it would be best if she went to a rehab facility and on postoperative day number four the patient was accepted by rehab. We will plan on her following with us in approximately 2 weeks from her surgical date for a wound check. She will continue taking her oral narcotics and taking an aspirin a day for DVT prophylaxis. Job [id number] cc: Hartforddavin Mancilla.
[2016-04-17] MEDS ORDERED: [UNRECOGNIZED DRUG - OTHER] IM SCH (09:00)
[2016-04-17] MEDS ORDERED: INTERFERON BETA IM SCH (09:00)
[2016-04-17] MEDS ORDERED: ALBUMIN IM SCH (09:00)
== END 2016-04-14 16:07 | DRG 483 ==
LOC: OR 12:01 → MS 21:56
PROVIDERS: ADMIT Orthopaedic Surgery; ATTEND Orthopaedic Surgery
PROC: 0RRJ00Z Replacement of Right Shoulder Joint with Reverse Ball and Socket Synthetic Substitute, Open Approach (ICD-10-PCS; principal; 2016-04-10)
DX: S42.201A Unspecified fracture of upper end of right humerus, initial encounter for closed fracture (principal); M75.21 Bicipital tendinitis, right shoulder; G35 Multiple sclerosis; F17.210 Nicotine dependence, cigarettes, uncomplicated